=== PATIENT | female | born 1960 | race Caucasian/White ===

== ENCOUNTER 2022-03-24 12:23 | Outpatient (CLI) | payer BC, MEDICARE, SELFPAY ==
--- NOTE | 2022-03-24 12:43 | ECG_ITS ---
Measurements Intervals [place] Rate: 89 P: 39 KS: 176 QRS: -27 QRSD: 94 T: 15 QT: 299 QTc: 364 Interpretive Statements SINUS RHYTHM LOW QRS VOLTAGE IN PRECORDIAL LEADS POOR R WAVE PROGRESSION, CONSIDER ANTEROLATERAL INFARCT BORDERLINE T WAVE ABNORMALITY- ANTERIOR LEADS BASELINE ARTIFACT- I, II, III, AVL, AVF, V4 ABNORMAL ECG Electronically Signed On 03-24-2022 13:09:32 CDT by Carlos Alberto Pettit D.O.
[2022-03-24 14:01] LABS: Anion Gap 9 mmol/L (8-16); Blood Urea Nitrogen 15 mg/dL (7-17); Calcium 8.7 mg/dL (8.4-10.2); Carbon Dioxide 33 mmol/L (22-30); Chloride 98 mmol/L (98-107); Estimated Glomerular Filt Rate > 60; Glucose 104 mg/dL (65-110); Potassium 3.8 mmol/L (3.4-5.0); Sodium 140 mmol/L (137-145)
== END 2022-03-24 12:24 | disposition home or self-care (01) ==
PROVIDERS: Anesthesiology; Visit Provider Neurological Surgery
DX: Z01.818 Encounter for other preprocedural examination (principal); M54.9 Dorsalgia, unspecified; Z51.81 Encounter for therapeutic drug level monitoring; Z79.899 Other long term (current) drug therapy; R94.31 Abnormal electrocardiogram [ECG] [EKG]
CPT/HCPCS: 36415; 80048; 86850; 86900; 86901; 93005

== ENCOUNTER 2022-03-30 00:15 | Day surgery (SDC) | payer BC, MEDICARE, SELFPAY ==
[2022-03-22 15:43] VITALS: BMI 39.1
--- NOTE | 2022-03-22 17:02 | SUR.PREOP ---
Report to the Outpatient Waiting Room, entrance under the green pavilion located off [facility], at time 0930 on date 03/30/22. OR Time: 1130. - You and your visitor will be asked a series of questions to screen for COVID 19 for your protection. - Only one visitor is allowed at this time. - The patient visitor is requested to leave or wait in car when not with patient. - A mask is required within the hospital. Patients may have clear liquids (water, carbonated beverages, clear teas, apple juice) until 3 hours prior to surgery with a maximum of 20 ounces. - No food from midnight until time of surgery - Infants may have breast milk until 4 hours before surgery, formula 6 hours prior to surgery. - Children will be allowed to drink immediately following surgery. If applicable, please bring a bottle or sippy cup to assist with drinking. Juice, water, soda, and popsicles are readily available. For infants on formula, please bring formula the day of surgery. Pacifiers are allowed. Take the following medications with a SIP of water the morning of surgery: LORAZAPAM Medications to discontinue per physician HOLD ALL VITAMINES AND SUPPLIMENTS FOR 3 DAYS PRIOR TO PROCEDURE Date to take last dose 03/27/22 Please no make-up, nail malian, hairspray, perfume, deodorant, or body powder the day of surgery. No jewelry (including any body piercings) or valuables the day of surgery, leave them at home. Please take a shower or bath the night before, or the morning of, surgery with an antibacterial soap. Wear comfortable, loose fitting clothing. Children are encouraged to wear pajamas. - Jewelry must be removed prior to entering the operating room. Rings and piercings that are not removed may be cut off. - The hospital will not accept responsibility for valuables. - Please leave all valuables, including medications, at home the day of surgery. If you are going home after surgery, a licensed motor bus driver must drive you home. - NO public transportation without another adult. - We recommend that an adult stay with you for 24 hours following discharge. - We also recommend that you do not drive, make important decision, drink alcoholic beverages, or take any drugs that were not prescribed by your health care provider for at least 24 hours after your discharge time. For Pediatric surgeries, we recommend two adults accompany the child home (only one inside the building at this time). Follow any additional instructions given to you from your surgeon. If you or anyone in your household have experienced Covid symptoms in the past week, please notify your surgeon or the nurse liaison at the phone number below for possible testing. Telephone instructions given to BENITO ANDRES and asked if any additional questions and then verbalized understanding. Patient advised to call surgeon office or pre surgery nurse liaison [phone] if any additional questions.
--- NOTE | 2022-03-29 15:06 | WPDANESEPPF ---
Anes - Initial Pre Proc Eval Procedure: Operation Date: 03/30/22 09:30 Proposed Procedures p Insertion Dorsal Column Stimulator, Lead and Generator, Nevro - Master Adair MD Date/Time: 03/29/22 15:06 Surgeon: Master Adair MD Pre Op Diagnosis: Chronic Back Pain, Chronic Christopher Leg Pain Patient Data Age: 61 Gender: F Height: 1.7 m Weight: 113.4 kg Allergies Allergy/AdvReac Type Severity Reaction Status Date / Time codeine Allergy Unknown BP Verified 03/22/22 16:44 DROPPED, FELT LIKE BUGS CRAWLING ON HER morphine Allergy Unknown Hypotension Verified 03/22/22 16:44 Sulfa (Sulfonamide Allergy Unknown Hives Verified 03/22/22 16:44 Antibiotics) Home Medications Medication Instructions Recorded Confirmed Type amitriptyline 50 mg tablet 50 tablet PO HS 03/22/22 03/22/22 History bupropion HCl 300 mg 24 hr tablet, 1 tablet PO DAILY 03/22/22 03/22/22 History extended release cyanocobalamin (vitamin B-12) See Rx Instructions .Route .COMPLEX 03/22/22 03/22/22 History 1,000 mcg/mL injection solution duloxetine 60 mg capsule,delayed 1 cap PO BID 03/22/22 03/22/22 History release ergocalciferol (vitamin D2) 1,250 See Rx Instructions .Route .COMPLEX 03/22/22 03/22/22 History mcg (50,000 unit) capsule furosemide 20 mg tablet 1 tablet PO DAILY 03/22/22 03/22/22 History gabapentin 400 mg capsule 3 cap PO TID 03/22/22 03/22/22 History lorazepam 2 mg tablet See Rx Instructions .Route .COMPLEX 03/22/22 03/22/22 History loteprednol etabonate 0.38 % eye See Rx Instructions .Route .COMPLEX 03/22/22 03/22/22 History gel drops (Lotemax SM) pantoprazole 40 mg tablet,delayed 1 tablet PO BID 03/22/22 03/22/22 History release plecanatide 3 mg tablet (Trulance) 1 tablet PO DAILY 03/22/22 03/22/22 History quetiapine 200 mg tablet 1 tablet PO HS 03/22/22 03/22/22 History tiotropium bromide 2.5 See Rx Instructions .Route .COMPLEX 03/22/22 03/22/22 History mcg/actuation mist for inhalation (Spiriva Respimat) Patient hx anesthesia problems: none Family hx anesthesia problems: none Results Review: All pre-operative results and documents have been reviewed as part of the pre-operative evaluation. [facility] Past Medical History Medical History (Updated 03/29/22 @ 15:08 by Mookie Torres MD) Anxiety Back pain Depression Obesity OMAR on CPAP Social History Social History Smoking status: Never smoker Living arrangements: with family Spiritual care concerns: No Anes - Eval Final PreProcedure Day of Procedure 03/29/22 15:06 Patient weight: obese Heart: regular rate and rhythm Lungs: clear to auscultation and normal air movement Airway: Mallampati scale class II Neurological: alert and oriented Last oral intake: >/= 8 hours ASA classification: III Emergent: no Anesthetic plan: proceed Anesthesia type and monitoring: general ETT Results Review: All pre-operative results and documents have been reviewed as part of the pre-operative evaluation. Informed Consent: The patient's anesthetic plan and its attendant risks and benefits were discussed with the patient/family/POA. Questions were solicited and answers provided to the satisfaction of the patient/family/POA.
[2022-03-30] VITALS (27 sets, daily range): BP systolic 101–129; BP diastolic 57–79; PULSE 68–98; RESP 14–20; TEMP 36.2–37.2; O2SAT 89–98
--- NOTE | ~2022-03-30 | XR_ITS ---
EXAMINATION: XR fluoroscopy no charge DATE: 03/30/2022 11:00 INDICATION: Insertion dorsal column stimulator lead and generator TECHNIQUE: 3 fluoroscopic images of the thoracolumbar spine were obtained during procedure performed by Dr. Adair. Radiologist was not present for the imaging or procedure. The amount of fluoroscopy time used during this procedure was 0.7 minutes. COMPARISON: CT dated 03/01/2012 FINDINGS: Images demonstrate retractors on either side of lucent surgical wound projecting over the lower thora cic spine likely at the level of T11-T12 however definitive assessment levels limited by fluoroscopic technique. Spinal stimulator leads extend more cephalad projecting over the central canal with dista l tips at the level of the inferior endplate of what is likely T9. Final image demonstrates combined instrumented anterior and posterior spinal fusion likely at L4-L5 with new anterior plate and screw f ixation since prior CT. IMPRESSION: 1. Fluoroscopy utilized during pain management procedure. See procedure note for further detail. Reviewed, dictated and finalized at location A. IMPRESSION: 1. Fluoroscopy utilized during pain management procedure. See procedure note fo r further detail.
[2022-03-30] MEDS: LACTATED RINGERS 1,000 ML 30 ML IV CONT ×2 (08:30→11:14)
--- NOTE | 2022-03-30 09:17 | PM.IMHP ---
H&P: HPI History of Present Illness Date/Time: 03/30/22 09:17 Chief Complaint: Back and leg pain Narrative: SHIN Underwood is a 61-year-old female with chronic back and leg pain that responded with dorsal column stimulator trial and then implanted was done percutaneously elsewhere and has now been removed because it fell out of position and no longer function for her pain. She presents now have a new device placed by way of laminectomy with the paddle lead. She has not changed since we saw her last. She is not having specific muscle group weakness or dermatomal numbness. Review of Systems Review of Systems: Patient denies shortness of breath, cough, fever, chills, nausea, vomiting, weight loss, weight gain, bowel or bladder disturbance, chest pain. She has pain in her back and legs as above. Review of systems is otherwise negative on 12 systems. [facility] Past Medical History Medical History Anxiety Back pain Depression Obesity OMAR on CPAP Social History Social History Smoking status: Never smoker Living arrangements: with family Spiritual care concerns: No Meds Home Medications and Allergies Home Medications Medication Instructions Recorded Confirmed Type amitriptyline 50 mg tablet 50 tablet PO HS 03/22/22 03/22/22 History bupropion HCl 300 mg 24 hr tablet, 1 tablet PO DAILY 03/22/22 03/22/22 History extended release cyanocobalamin (vitamin B-12) See Rx Instructions .Route .COMPLEX 03/22/22 03/22/22 History 1,000 mcg/mL injection solution duloxetine 60 mg capsule,delayed 1 cap PO BID 03/22/22 03/22/22 History release ergocalciferol (vitamin D2) 1,250 See Rx Instructions .Route .COMPLEX 03/22/22 03/22/22 History mcg (50,000 unit) capsule furosemide 20 mg tablet 1 tablet PO DAILY 03/22/22 03/22/22 History gabapentin 400 mg capsule 3 cap PO TID 03/22/22 03/22/22 History lorazepam 2 mg tablet See Rx Instructions .Route .COMPLEX 03/22/22 03/22/22 History loteprednol etabonate 0.38 % eye See Rx Instructions .Route .COMPLEX 03/22/22 03/22/22 History gel drops (Lotemax SM) pantoprazole 40 mg tablet,delayed 1 tablet PO BID 03/22/22 03/22/22 History release plecanatide 3 mg tablet (Trulance) 1 tablet PO DAILY 03/22/22 03/22/22 History quetiapine 200 mg tablet 1 tablet PO HS 03/22/22 03/22/22 History tiotropium bromide 2.5 See Rx Instructions .Route .COMPLEX 03/22/22 03/22/22 History mcg/actuation mist for inhalation (Spiriva Respimat) Allergies Allergy/AdvReac Type Severity Reaction Status Date / Time codeine Allergy Unknown BP Verified 03/30/22 09:18 DROPPED, FELT LIKE BUGS CRAWLING ON HER morphine Allergy Unknown Hypotension Verified 03/30/22 09:18 Sulfa (Sulfonamide Allergy Unknown Hives Verified 03/30/22 09:18 Antibiotics) Exam Narrative: The patient is a normally developed, normal appearing female supine on the hospital bed. She is obese. She is awake, alert, oriented x3 with good fund of knowledge, recall events and fluent speech. Her face is symmetrical, tongue is midline, her pupils are equal and reactive to light, her extraocular movements are intact without diplopia or nystagmus. There is no upper extremity drift, dysmetria or dyspraxia. Strength is normal in the bilateral lower extremities to direct confrontation. Sensation was likewise intact to light touch in the lower extremities. Assessment and Plan Assessment and plan (1) Chronic back pain: Code(s): M54.9 - Dorsalgia, unspecified; G89.29 - Other chronic pain Status: Acute (2) Chronic leg pain: Code(s): M79.606 - Pain in leg, unspecified; G89.29 - Other chronic pain Status: Acute Plan Shameka is a 61-year-old female with back and leg pain that responded to dorsal column stimulation he presents for permanent implantation. I again describ
--- NOTE | 2022-03-30 09:20 | WPDHPUPDATE1 ---
History and Physical Update Update Date/Time: 03/30/22 09:20 History and Physical has been reviewed, including an updated exam of the patient. There are NO changes in the patient's condition. Risks, benefits, and alternatives have been discussed and questions answered. Patient agrees to proceed with procedure.
[2022-03-30] MEDS: ceFAZolin 2 GM/D5W 50 ML 2 GM/50 ML BAG IVPB (09:31)
[2022-03-30] MEDS: LIDO 1%/EPINEPHRINE/PF 1:200,000 30 ML VIAL 50 ML XX (10:11)
[2022-03-30] MEDS: VANCOMYCIN HCL 1,000 MG VIAL 1000 MG TOPICAL (10:13)
--- NOTE | 2022-03-30 11:08 | P.OP_ITS ---
Procedure Note - Detailed Date of Procedure 03/30/22 Pre-op Diagnosis Chronic Back Pain, Chronic Christopher Leg Pain Post-op Diagnosis Same Procedure Performed Placement of dorsal column stimulator lead and generator. Surgeon Master Adair MD Reducing System Operator Juanjo Anesthesia General Indications Winnie is a 61-year-old female with back and leg pain that responded dorsal column stimulation presents for permanent implantation. Findings Normal anatomy Description of Procedure The patient was brought to the operating room in the supine position, was sedated, intubated and placed under general anesthesia in routine fashion. She was then turned into the prone position on a Rick frame. The area of operation on her back was examined, marked for incision, prepped and draped in routine sterile fashion. Incision was marked based on the T11 pedicles in the midline longitudinally and the left flank transversely. These areas were injected with 0.5% lidocaine with [id number] epinephrine. Intravenous antibiotics given prior to incision. Incision was made in both locations with a 10 blade scalpel. A pocket was created 1 cm deep in the tissue above and below the flank incision using curved Saba scissors and toothed forceps. Bleeding was stopped with bipolar cautery. At the thoracic incision a subperiosteal dissection of the muscle and soft tissue within the spinous process and lamina was performed with a subperiosteal elevator and Bovie cautery. A verifying x-rays obtained to verify the level of operation. Laminectomies were performed at T10-11 and 8 T 910. This was done with a Leksell rongeur Kerrison punches and curved curette until a short wide area of the dura was uncovered. The lead was then placed into the dorsal epidural space to and confirmed by fluoroscopy to be in the midline behind the T9 and T10 vertebral bodies. An anchor was attached to 1 of the wires which was attached to the superior spinous process using a 3-0 Prolene suture. Tension relief loops were placed to both of the wires which were very to the flank incision. Here they were inserted into the generator slots and secured using small screwdriver for that purpose. Impedance testing was carried out to confirm good connections which was confirmed. The wounds were then copiously irrigated with bacitracin irrigation all bleeding stopped with bipolar and Bovie cautery and Surgiflo. The thoracic incision was closed with 2-0 Vicryl interrupted sutures in the thoracic fascia and Liza's layer. Both incisions were closed with 3-0 Vicryl. Interrupted sutures in the dermis and a running 4-0 Monocryl subcuticular stitch in the skin were dressed with benzoin, Steri-Strips and a Telfa and Tegaderm dressing. The patient was allowed to wake up in the operating room and was taken to the recovery room in stable condition. There were no immediate complications of this operation. All counts were reported correct at the end of the case. Blood loss was 25 cc. The patient was neurologically at her baseline postoperatively. Implants Nevro dorsal column stimulator lead and generator. Estimated Blood Loss 25 IV Fluids 1,000 Drains No Complications None Disposition PACU
[2022-03-30] MEDS: oxyCODONE HCL (*CRX) 5 MG TAB IR PO (14:47)
[2022-03-30] MEDS: MORPHINE SULFATE (*CRX) 2 MG/ML INJ IV PUSH (17:34)
[2022-03-30] MEDS: DULoxetine HCL 60 MG CAPSULE.DR PO (17:39)
[2022-03-30] MEDS: GABAPENTIN 400 MG CAPSULE 1200 MG PO (17:39)
[2022-03-30] MEDS: PANTOPRAZOLE 40 MG TABLET PO (17:40)
[2022-03-30] MEDS: QUEtiapine FUMARATE 100 MG TABLET 200 MG PO (21:46)
[2022-03-30] MEDS: DOCUSATE SODIUM 100 MG CAPSULE PO (21:47)
[2022-03-30] MEDS: AMITRIPTYLINE HCL 25 MG TABLET 50 MG PO (21:47)
[2022-03-30] MEDS: LORazepam (*CRX) 1 MG TABLET 2 MG BY MOUTH (21:47)
[2022-03-31 00:17] VITALS: BP 123/61; PULSE 79; RESP 16; TEMP 36.1; O2SAT 93
[2022-03-31] MEDS: KCL 20 MEQ/D5/0.45% SOD CHL 1,000 ML 100 ML IV CONT ×2 (00:38→13:20)
[2022-03-31] MEDS: MORPHINE SULFATE (*CRX) 2 MG/ML INJ IV PUSH (00:39)
[2022-03-31] MEDS: HYDROcodone/acetaminophen (*CRX) 10-325 MG TABLET 1 TAB PO ×2 (03:44→17:18)
[2022-03-31 04:22] VITALS: BP 111/66; PULSE 79; RESP 18; TEMP 36.2; O2SAT 94
[2022-03-31 07:52] VITALS: BP 115/74; PULSE 76; RESP 16; TEMP 36.7; O2SAT 93
[2022-03-31] MEDS: DULoxetine HCL 60 MG CAPSULE.DR PO (08:29)
[2022-03-31] MEDS: FUROSEMIDE 20 MG TABLET PO (08:29)
[2022-03-31] MEDS: buPROPion HCL XL (24 HR) 150 MG TABCR 300 MG PO (08:29)
[2022-03-31] MEDS: DOCUSATE SODIUM 100 MG CAPSULE PO (08:29)
[2022-03-31] MEDS: GABAPENTIN 400 MG CAPSULE 1200 MG PO ×2 (08:30→13:16)
[2022-03-31] MEDS: LORazepam (*CRX) 1 MG TABLET 2 MG BY MOUTH (08:30)
[2022-03-31] MEDS: PANTOPRAZOLE 40 MG TABLET PO (08:30)
--- NOTE | 2022-03-31 11:37 | WPDANESPN ---
Anes - Prog Note Post-Op Date/Time: 03/31/22 11:37 Vital Signs: Last Vital Signs Temp 36.7 C 03/31/22 07:52 Pulse 76 03/31/22 07:52 Resp 16 03/31/22 07:52 BP 115/74 03/31/22 07:52 Pulse Ox 93 03/31/22 07:52 O2 Del Method Room Air 03/31/22 08:00 O2 Flow Rate 2 03/30/22 16:40 Pain Score (VAS): 0 I/O: Intake & Output 03/30/22 03/31/22 03/31/22 23:59 07:59 15:59 Intake Total 450 Output Total 850 1200 Balance -400 -1200 Patient Feedback: Patient satisfied with anesthetic care.
[2022-03-31] MEDS: ONDANSETRON INJ 4 MG/2 ML VIAL IV PUSH (13:23)
[2022-03-31 15:52] VITALS: BP 112/62; PULSE 78; RESP 22; TEMP 35.7; O2SAT 96
--- NOTE | 2022-03-31 16:49 | WPDPN ---
Progress Note: A&P Assessment and Plan (1) Chronic leg pain: Code(s): M79.606 - Pain in leg, unspecified; G89.29 - Other chronic pain Status: Acute Assessment and Plan: The patient is doing well postop day 1. I think it is reasonable for her to be discharged home. Will send her home with some hydrocodone to take on an as-needed basis. We discussed discharge instructions including wound care and activity limitations. She will return to see Dr. pavon the next 4-6 weeks. She will continue her routine home medications and avoid blood thinners. Subjective Date/time seen: 03/31/22 16:49 Interval history: The patient is doing well postop day 1. She has been up ambulating, voiding, and tolerating a regular diet. Her pain has been well controlled. She would like to go home. Exam Narrative: On examination her bandages clean and dry. She is moving her lower extremities with normal strength. She has normal sensation. Objective Data Vital Signs Vital Signs: Vital Signs - 24 hr 03/30/22 17:10 03/30/22 17:25 03/30/22 17:55 Temperature 98.3 F 98.3 F 98.7 F Pulse Rate 97 86 85 Respiratory Rate 20 20 18 Blood Pressure 125/60 120/67 127/59 L Pulse Oximetry 93 95 98 Oxygen Delivery 03/30/22 18:48 03/30/22 20:19 03/31/22 00:17 Temperature 97.9 F 97.4 F L 97 F L Pulse Rate 82 96 79 Respiratory Rate 20 16 16 Blood Pressure 125/73 124/58 L 123/61 Pulse Oximetry 94 94 93 Oxygen Delivery 03/31/22 04:22 03/31/22 08:00 03/31/22 07:52 Temperature 97.2 F L 98.0 F Pulse Rate 79 76 Respiratory Rate 18 16 Blood Pressure 111/66 115/74 Pulse Oximetry 94 93 Oxygen Delivery Room Air 03/31/22 15:52 Temperature 96.3 F L Pulse Rate 78 Respiratory Rate 22 H Blood Pressure 112/62 Pulse Oximetry 96 Oxygen Delivery Intake/Output Intake/Output: Intake & Output 03/28/22 03/29/22 03/30/22 03/31/22 23:59 23:59 23:59 23:59 Intake Total 1175 1450 Output Total 2050 Balance 1175 -600 Meds/Results Medications: Active Medications Generic Name Dose Route Start Last Admin Trade Name Freq PRN Reason Stop Dose Admin Hydrocodone Bitart/Acetaminophen 1 tab 03/30/22 16:52 Hydrocodone/Acetaminophen (*Crx) 5-325 Mg Tablet PO Q4H PRN Mild Pain (1-3) Hydrocodone Bitart/Acetaminophen 1 tab 03/30/22 16:52 03/31/22 03:44 Hydrocodone/Acetaminophen (*Crx) 10-325 Mg Tablet PO 1 tab Q4H PRN Administration Moderate Pain (4-6) Al Hydrox/Mg Hydrox/Simethicone 20 ml 03/30/22 16:52 Mag Hydrox/Al Hydrox/Simeth 30 Ml Udc PO Q4H PRN Indigestion/Heartburn Amitriptyline HCl 50 mg 03/30/22 21:00 03/30/22 21:47 Amitriptyline Hcl 25 Mg Tablet PO 50 mg HS ASHLIE Administration Bisacodyl 10 mg 03/30/22 16:52 Bisacodyl 10 Mg Suppository RECTAL DAILY PRN Constipation Bupropion HCl 300 mg 03/31/22 09:00 03/31/22 08:29 Bupropion Hcl Xl (24 Hr) 150 Mg Tabcr PO 300 mg DAILY ASHLIE Administration Docusate Sodium 100 mg 03/30/22 21:00 03/31/22 08:29 Docusate Sodium 100 Mg Capsule PO 100 mg Q12HR ASHLIE Administration Duloxetine HCl 60 mg 03/30/22 17:00 03/31/22 08:29 Duloxetine Hcl 60 Mg Capsule.Dr PO 60 mg BID ASHLIE Administration Ergocalciferol 50,000 unit 04/02/22 09:00 Ergocalciferol 50,000 Unit Capsule BY MOUTH Fr@0900 ASHLIE Furosemide 20 mg 03/31/22 09:00 03/31/22 08:29 Furosemide 20 Mg Tablet PO 20 mg DAILY ASHLIE Administration Gabapentin 1,200 mg 03/30/22 17:10 03/31/22 13:16 Gabapentin 400 Mg Capsule PO 1,200 mg TID ASHLIE Administration Potassium Chloride/Dextrose/Sod Cl 1,000 mls @ 100 mls/hr 03/30/22 16:52 03/31/22 13:20 Kcl 20 Meq/D5/0.45% Sod Chl IV CONT 100 mls/hr .Q10H ASHLIE Administration Lorazepam 2 mg 03/30/22 21:00 03/31/22 08:30 Lorazepam (*Crx) 1 Mg Tablet BY MOUTH 2 mg Q12HR ASHLIE Administration Lorazepam 2 mg 03/30/22 21:02 Jordyn
== END 2022-03-31 17:50 | disposition home or self-care (01) ==
LOC: ANHSURGERY 07:12 → ANH3MED 17:03
PROVIDERS: Visit Provider Neurological Surgery
PROC: (CPT 63685; principal; 2022-03-30 09:30)
DX: M54.9 Dorsalgia, unspecified (principal); M79.605 Pain in left leg; M79.604 Pain in right leg; G89.29 Other chronic pain; G47.33 Obstructive sleep apnea (adult) (pediatric); F41.9 Anxiety disorder, unspecified; F32.A Depression, unspecified; E66.9 Obesity, unspecified; Z68.41 Body mass index [BMI] 40.0-44.9, adult
CPT/HCPCS: 63685; 63655; 36415; 80048; 86850; 86900; 86901; 93005; 99199; A9270; J0690; J1100; J2250; J2270; J2405; J2704; J3010; J3370; J3480; J7120